=== PATIENT | female | born 1995 | race Caucasian/White ===

== ENCOUNTER 2017-10-12 10:26 | Emergency (ER) | payer OTHER ==
[2017-10-12 12:57] LABS: Absolute Monocytes 0.8 K/uL (0.1-1.3); Absolute Neutrophil 8.8 K/uL (1.8-8.0); Basophils % 0.5 % (0-1.3); Eosinophils % 1.1 % (0-4.4); Hematocrit 41.2 % (36.0-45.0); Lymphocytes % 16.8 % (15.3-44.8); MCH 29.6 pg (27.0-35.0); MCV 88.2 fL (80-100); MPV 9.4 fL (7.6-11.3); Monocytes % 6.6 % (3.3-12.3); RBC Red Blood Cell Count 4.67 M/uL (3.86-4.86)
[2017-10-12 12:59] LABS: Urine Blood 3+ (NEG); Urine Glucose NEGATIVE (NEG); Urine Protein 2+ (NEG); Urine pH 8.5 (5.0-7.0)
[2017-10-12 13:04] LABS: Protime INR 1.07
[2017-10-12 13:08] LABS: Bicarbonate 26 mEq/L (21-31); Glucose Level 103 mg/dL (65-120); Potassium 3.5 mEq/L (3.6-5.0); Sodium Level 139 mEq/L (135-145)
[2017-10-12 13:09] LABS: BUN Blood Urea Nitrogen 11 mg/dL (6-20); Magnesium 1.9 mg/dL (1.8-2.5)
[2017-10-12] MEDS ORDERED: MECLIZINE HCL 12.5 MG TAB ONE (14:39)
[2017-10-12] MEDS ORDERED: POTASSIUM 25 MEQ EFFERV TAB ONE (14:40)
--- NOTE | 2017-10-12 15:26 | EKG ---
Test Date: 2017-10-12 Test Time: 12:27:32 [employer] Agent: ANTWAN MEASUREMENT RESULTS: Intervals: Rate: 73 SD: 140 QRSD: 88 QT: 396 QTc: 436 [place]: P: 51 SD: 140 QRS: 6 T: 12 INTERPRETIVE STATEMENTS: Normal sinus rhythm with sinus arrhythmia Possible Left atrial enlargement Borderline ECG No previous ECG available for comparison Electronically Signed On 10-12-17 15:25:33 CDT by Christoph Mckeon
--- NOTE | 2017-10-12 16:28 | RAD REPORT ---
EXAM DESCRIPTION: MRI - Brain Wo Cont - 10/12/2017 4:07 pm CLINICAL HISTORY: Dizziness, weakness, intermittent altered mental status COMPARISON: None. TECHNIQUE: Sagittal T1-weighted images were obtained along with axial PD, heavily T2-weighted and T2 -FLAIR images. Axial DWI and ADC mapping sequences were also obtained along with coronal heavily T2-w eighted images. FINDINGS: No intracranial hemorrhage, mass or acute infarction. There is no edema or shift of midlin e structures. No extra-axial fluid collections. Cotton-matter/white matter junction is preserved. Signa l voids are seen as a normal finding in the major intracranial vessels. No globe or orbital content abnormality. Sella and suprasellar regions are normal. No tonsillar ectop ia. There is no cerebellopontine angle mass or other posterior fossa abnormality. Mastoid air cells and paranasal sinuses are clear. IMPRESSION: Negative non-contrast MRI of the Brain.
--- NOTE | 2017-10-12 16:34 | ER ---
Nurse's Notes [facility] Name: Donna Farris Age: 22 yrs Sex: Female : 1995 Arrival Date: 10/12/2017 Time: 10:28 Bed 14 Private MD: Diagnosis: Dizziness Presentation: 10/12 10:51 Presenting complaint: Patient states: " I have been feeling weird and dizzy like my ph equilibrium is off. It's like I can't concentrate. It's been happening off and on for about a year, I've seen an ENT but they said everything was okay. It started again today and I just want to get it checked out." Pt reports intermittent dizziness and nausea, denies weakness. Transition of care: patient was not received from another setting of care. Onset of symptoms was October 12, 2017. Initial Sepsis Screen: Does the patient meet any 2 criteria? No. Patient's initial sepsis screen is negative. Does the patient have a suspected source of infection? No. Patient's initial sepsis screen is negative. Care prior to arrival: None. 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 - Social history:: Smoking status: Patient/guardian denies using tobacco. Screenin:00 Abuse screen: Denies threats or abuse. Nutritional screening: No deficits noted. rb1 Tuberculosis screening: No symptoms or risk factors identified. Fall Risk None identified. Assessment: 11:00 General: Appears in no apparent distress. comfortable, Behavior is calm, cooperative. rb1 Pain: Denies pain. Neuro: Level of Consciousness is awake, alert, obeys commands, Oriented to person, place, time, situation. Neuro: Reports dizziness, Has been happening off and on for several weeks. Pt. stated, "My head feels full and I have pressure in both ears.". Cardiovascular: Capillary refill < 3 seconds is brisk in bilateral fingers. Respiratory: Airway is patent Respiratory effort is even, unlabored, Respiratory pattern is regular, symmetrical. GI: No signs and/or symptoms were reported involving the gastrointestinal system. : No signs and/or symptoms were reported regarding the genitourinary system. Derm: Skin is pink, warm \\T\\ dry. Musculoskeletal: Range of motion: intact in all extremities. 12:00 Reassessment: Patient appears in no apparent distress at this time. No changes from rb1 previously documented assessment. 12:59 Reassessment: Patient appears in no apparent distress at this time. Patient and/or rb1 family updated on plan of care and expected duration. Pain level reassessed. Patient is alert, oriented x 3, equal unlabored respirations, skin warm/dry/pink. Spouse at bedside. 14:00 Reassessment: Patient appears in no apparent distress at this time. No changes from rb1 previously documented assessment. 15:00 Reassessment: Patient appears in no apparent distress at this time. Patient and/or rb1 family updated on plan of care and expected duration. Pain level reassessed. Patient is alert, oriented x 3, equal unlabored respirations, skin warm/dry/pink. pt. still c/o being dizzy and having pressure in her ears. at bedside. 16:00 Reassessment: Patient appears in no apparent distress at this time. No changes from rb1 previously documented assessment. Patient states feeling better. 16:38 Reassessment: Patient appears in no apparent distress at this time. Patient and/or rb1 family updated on plan of care and expected duration. Pain level reassessed. Patient is alert, oriented x 3, equal unlabored respirations, skin warm/dry/pink. Patient states symptoms have improved. Vital Signs: 10:54 BP 130 / 75; Pulse 80; Resp 18; Temp 97.9; Pulse Ox 97% on R/A; Weight 95.71 kg; Height ph 5 ft. 5 in. (165.10 cm); Pain 0/10; 11:35 BP 116 / 74 Supine; Pulse 82; Resp 17; Pulse Ox 98% on R/A; rb1 11:37 BP 121 / 67 Sitting; Pulse 73; Resp 17; Pulse Ox 100% on R/A; rb1 11:39 BP 115 / 76 Standing; Pulse 70; Resp 18; Pulse Ox 100% ; rb1 12:30 BP 128 / 69; Pulse 74; Resp 17; Pulse Ox 98% on R/A; rb1 13:27 BP 130 / 72; Pulse 80; Resp 18; Pulse Ox 98% on R/A; rb1 14:25 BP 122 / 78; Pulse 68; Resp 17; Pulse Ox 99% on R/A; rb1 15:20 BP 129 / 81; Pulse 76; Resp 19; Pulse Ox 100% on R/A; rb1 16:20 BP 124 / 78; Pulse 82; Resp 17; Pulse Ox 100% on R/A; rb1 10:54 Body Mass Index 35.11 (95.71 kg, 165.10 cm) ph ED Course: 10:28 Patient arrived in ED. sb2 10:54 Triage completed. ph 10:55 Arm band placed on. ph 10:59 Efe Adame PA is PHCP. cp 10:59 Efe Maharaj MD is Attending Physician. cp 11:00 Patient has correct armband on for positive identification. Bed in low position. Call rb1 light in reach. Side rails up X 1. manager money on. Pulse ox on. NIBP on. 11:02 Alecia Marie, RN is Primary Nurse. rb1 12:25 Urine collected: clean catch specimen, blood tinged. Missed attempt(s): 24 gauge in dh3 right wrist. Bleeding controlled, band aid applied, catheter tip intact. 12:45 Initial lab(s) drawn, by me, sent to lab. Inserted saline lock: 20 gauge in right aa5 antecubital area, using aseptic technique. Blood collected. 15:07 Patient moved to [facility] via wheelchair. ka 15:27 MRI completed. Patient tolerated well. Patient moved back from [facility]. ka 15:28 MRI - Brain Wo Cont In Process Unspecified. EDMS 16:32 Reji Juarez MD is Referral Physician. cp 16:50 No provider procedures requiring assistance completed. IV discontinued, intact, rb1 bleeding controlled, No redness/swelling at site. Pressure dressing applied. Administered Medications: 14:53 Drug: Meclizine 25 mg Route: PO; rb1 15:12 Follow up: Response: No adverse reaction rb1 14:53 Drug: Potassium Effervescent Tablet 25 mEq Route: PO; rb1 15:12 Follow up: Response: No adverse reaction rb1 15:10 Drug: NS 0.9% 1000 ml Route: IV; Rate: 1 bolus; Site: right antecubital; rb1 16:22 Follow up: IV Status: Completed infusion rb1 Outcome: 16:33 Discharge ordered by . cp 16:50 Patient left the ED. rb1 16:50 Discharged to home ambulatory, with significant other. rb1 16:50 Condition: stable 16:50 Discharge instructions given to patient, Instructed on discharge instructions, follow up and referral plans. medication usage, Demonstrated understanding of instructions, follow-up care, medications, Prescriptions given X 2. Signatures: Dispatcher [employer] EDAbby Smith RN RN aa5 Mariajose Rogers RN RN ph Wendi, Efe, PA PA Alecia Avila RN RN rb1 Laura Sanon Deanna 3 Sammie Cabrera 2
--- NOTE | 2017-10-12 16:34 | EDPHYS ---
Physician Documentation [facility] Name: Donna Farris Age: 22 yrs Sex: Female : 1995 Arrival Date: 10/12/2017 Time: 10:28 Bed 14 Private MD: ED Physician Efe Maharaj HPI: 10/12 11:30 This 22 yrs old Female presents to ER via Ambulatory with complaints of cp Dizziness. 11:30 The patient presents with dizziness, feeling off balance. Onset: The symptoms/episode cp began/occurred 1 year(s) ago. 11:30 Associated signs and symptoms: Pertinent negatives: abdominal pain, blurred vision, cp chest pain, focal weakness, headache, near-syncope, palpitations, shortness of breath, syncope, vomiting. Severity of symptoms: in the emergency department the symptoms are unchanged despite home interventions. Patient's baseline: Neuro: alert and fully oriented, Motor: no deficits, Ambulation: walks without assistance, Speech: normal. 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 - Social history:: Smoking status: Patient/guardian denies using tobacco. ROS: 11:37 Constitutional: Negative for body aches, chills, fever, poor PO intake. cp 11:37 Eyes: Negative for injury, pain, redness, and discharge. cp 11:37 ENT: Negative for drainage from ear(s), ear pain, rhinorrhea, sinus congestion, difficulty swallowing, difficulty handling secretions. 11:37 Neck: Negative for pain with movement, pain at rest, stiffness, tenderness, bony tenderness. 11:37 Cardiovascular: Negative for chest pain, edema, palpitations. 11:37 Respiratory: Negative for cough, shortness of breath, wheezing. 11:37 Abdomen/GI: Negative for abdominal pain, vomiting, diarrhea, constipation, black/tarry stool, rectal bleeding. 11:37 Back: Negative for pain at rest, pain with movement, radiated pain. 11:37 Skin: Negative for cellulitis, rash. 11:37 Neuro: Positive for dizziness, Negative for altered mental status, headache, seizure activity, syncope, near syncope, weakness. 11:37 All other systems are negative. Exam: 11:42 Constitutional: The patient appears in no acute distress, alert, awake, cp non-diaphoretic, well developed, well nourished. 11:42 Head/Face: Normocephalic, atraumatic. Eyes: Pupils equal round and reactive to light, cp extra-ocular motions intact. Lids and lashes normal. Conjunctiva and sclera are non-icteric and not injected. Cornea within normal limits. Periorbital areas with no swelling, redness, or edema. ENT: Nares patent. No nasal discharge, no septal abnormalities noted. Tympanic membranes are normal and external auditory canals are clear. Oropharynx with no redness, swelling, or masses, exudates, or evidence of obstruction, uvula midline. Mucous membranes moist. Neck: Trachea midline, no thyromegaly or masses palpated, and no cervical lymphadenopathy. Supple, full range of motion without nuchal rigidity, or vertebral point tenderness. No Meningismus. Chest/axilla: Normal chest wall appearance and motion. Nontender with no deformity. No lesions are appreciated. 11:42 Cardiovascular: Rate: normal, Rhythm: regular, Pulses: Pulses are 2+ in right radial artery and left radial artery. Edema: is not appreciated, JVD: is not appreciated. 11:42 Respiratory: the patient does not display signs of respiratory distress, Respirations: normal, no use of accessory muscles, no retractions, no splinting, no tachypnea, labored breathing, is not present, Breath sounds: are clear throughout, no decreased breath sounds, no stridor, no wheezing. 11:42 Abdomen/GI: Inspection: abdomen appears normal, Bowel sounds: active, all quadrants, Palpation: abdomen is soft and non-tender, in all quadrants, rebound tenderness, is not appreciated, voluntary guarding, is not appreciated, involuntary guarding, is not appreciated. 11:42 Back: pain, is absent, ROM is normal. 11:42 Skin: cellulitis, is not appreciated, no rash present. 11:42 Neuro: Orientation: to person, place \T\ time. Mentation: lucid, able to follow commands, Cerebellar function: is grossly normal, Motor: moves all fours, strength is normal, Sensation: no obvious gross deficits, Gait: is steady. 12:35 ECG was reviewed by the Attending Physician. cp Vital Signs: 10:54 BP 130 / 75; Pulse 80; Resp 18; Temp 97.9; Pulse Ox 97% on R/A; Weight 95.71 kg; Height ph 5 ft. 5 in. (165.10 cm); Pain 0/10; 11:35 BP 116 / 74 Supine; Pulse 82; Resp 17; Pulse Ox 98% on R/A; rb1 11:37 BP 121 / 67 Sitting; Pulse 73; Resp 17; Pulse Ox 100% on R/A; rb1 11:39 BP 115 / 76 Standing; Pulse 70; Resp 18; Pulse Ox 100% ; rb1 12:30 BP 128 / 69; Pulse 74; Resp 17; Pulse Ox 98% on R/A; rb1 13:27 BP 130 / 72; Pulse 80; Resp 18; Pulse Ox 98% on R/A; rb1 14:25 BP 122 / 78; Pulse 68; Resp 17; Pulse Ox 99% on R/A; rb1 15:20 BP 129 / 81; Pulse 76; Resp 19; Pulse Ox 100% on R/A; rb1 16:20 BP 124 / 78; Pulse 82; Resp 17; Pulse Ox 100% on R/A; rb1 10:54 Body Mass Index 35.11 (95.71 kg, 165.10 cm) ph MDM: 10:59 Patient medically screened. cp 12:00 Differential diagnosis: cardiac arrhythmia, GI bleed, hypovolemia, idiopathic cp dizziness, vertigo. 16:32 Data reviewed: vital signs, nurses notes, lab test result(s), EKG, radiologic studies, cp MRI. 16:32 Counseling: I had a detailed discussion with the patient and/or guardian regarding: the cp historical points, exam findings, and any diagnostic results supporting the discharge/admit diagnosis, lab results, radiology results, the need for outpatient follow up, a neurologist, to return to the emergency department if symptoms worsen or persist or if there are any questions or concerns that arise at home. Response to treatment: the patient's symptoms have mildly improved after treatment, and as a result, I will discharge patient. 10/12 11:32 Order name: Basic Metabolic Panel; Complete Time: 14:11 cp 10/12 14:11 Interpretation: Normal except: K 3.5. cp 10/12 11:32 Order name: CBC with Diff; Complete Time: 14:11 cp 05 14:12 Interpretation: Normal except: WBC 11.7; MCV 88.2; MCH 29.6; LAUREN% 75.0; NEUT A 8.8. cp 10/12 11:32 Order name: Magnesium; Complete Time: 14:11 cp 10/12 11:32 Order name: PT-INR; Complete Time: 14:11 cp 10/12 14:12 Interpretation: PT 12.6; Reviewed. 10/12 11:32 Order name: Ptt, Activated; Complete Time: 14:11 cp 10/12 12:25 Order name: Urine Dipstick--Ancillary (enter results); Complete Time: 14:11 10/12 14:12 Interpretation: Normal except: UBLD 3+; UPH 8.5; UPROT 2+. 10/12 11:20 Order name: Orthostatics; Complete Time: 11:40 10/12 11:20 Order name: EKG; Complete Time: 11:21 10/12 11:20 Order name: EKG - Nurse/Tech; Complete Time: 12:26 cp 10/12 12:25 Order name: Urine --Ancillary (enter results); Complete Time: 14:11 10/12 16:32 Interpretation: Reviewed. 10/12 14:54 Order name: MRI - Brain Wo Cont; Complete Time: 16:31 cp 10/12 11:32 Order name: Urine Dipstick-Ancillary (obtain specimen); Complete Time: 12:26 cp 10/12 11:32 Order name: Urine Test (obtain specimen); Complete Time: 12:26 cp 10/12 11:32 Order name: Cardiac monitoring; Complete Time: 14:54 cp 10/12 11:32 Order name: IV Saline Lock; Complete Time: 14:53 cp 10/12 11:32 Order name: Labs collected and sent; Complete Time: 14:53 10/12 11:32 Order name: O2 Per Protocol; Complete Time: 14:53 cp 10/12 11:32 Order name: O2 Sat Monitoring; Complete Time: 14:53 cp EC:35 Rate is 73 beats/min. Rhythm is regular. PA interval is normal. QRS interval is normal. cp QT interval is normal. No ST changes noted. Interpreted by me. Reviewed by me. Administered Medications: 14:53 Drug: Meclizine 25 mg Route: PO; rb1 15:12 Follow up: Response: No adverse reaction rb1 14:53 Drug: Potassium Effervescent Tablet 25 mEq Route: PO; rb1 15:12 Follow up: Response: No adverse reaction rb1 15:10 Drug: NS 0.9% 1000 ml Route: IV; Rate: 1 bolus; Site: right antecubital; rb1 16:22 Follow up: IV Status: Completed infusion rb1 Disposition: 10/13 11:44 Co-signature as Attending Physician, fEe Maharaj MD I agree with the assessment and calista plan of care. Disposition: 10/12/17 16:33 Discharged to Home. Impression: Dizziness. - Condition is Stable. - Discharge Instructions: Dizziness, Vertigo. - Prescriptions for Meclizine 25 mg Oral Tablet - take 1 tablet by ORAL route every 8 hours As needed; 30 tablet. Zofran 4 mg Oral Tablet - take 1 tablet by ORAL route every 12 hours As needed; 20 tablet. - Medication Reconciliation Form, Thank You Letter, Antibiotic Education, Prescription Opioid Use form. - Follow up: Reji Juarez MD; When: 1 - 2 days; Reason: Recheck today's complaints. - Problem is new. - Symptoms are unchanged. Signatures: Dispatcher [employer] EDNV Efe Maharaj MD MD cha Hall, Patricia, RN RN Efe Gonsalves PA PA cp Barber, Rebecca, MOLLY RN rb1 Corrections: (The following items were deleted from the chart) 10/12 16:50 16:33 10/12/2017 16:33 Discharged to Home. Impression: Dizziness. Condition is Stable. rb1 Forms are Medication Reconciliation Form, Thank You Letter, Antibiotic Education, Prescription Opioid Use. Follow up: Reji Juarez; When: 1 - 2 days; Reason: Recheck today's complaints. Problem is new. Symptoms are unchanged. cp
[2017-10-12] MEDS ORDERED: NA CHLORIDE 0.9% 1,000 ML ONE (16:38)
[2017-10-12 16:54] VITALS: TEMP 97.9
[2017-10-12 16:56] VITALS: O2SAT 100
[2017-10-12 16:58] VITALS: BP 115/76
== END 2017-10-12 16:50 | disposition home or self-care (01) ==
LOC: ER 10:26
DX: R42 Dizziness and giddiness (principal); K21.9 Gastro-esophageal reflux disease without esophagitis; Z88.1 Allergy status to other antibiotic agents; Z98.82 Breast implant status
CPT/HCPCS: 36415; 70551; 80048; 81003; 81025; 83735; 85025; 85610; 85730; 93005; 96360; 99285; J7030

== ENCOUNTER 2018-12-29 05:23 | Inpatient (IN) | payer OTHER ==
[2018-12-29] MEDS ORDERED: CEFAZOLIN/SWI 2gm 2 GM/20 ML SYR ONE (05:56)
[2018-12-29] MEDS ORDERED: FENTANYL CITR 250 MCG/5 ML ONE (05:58)
[2018-12-29] MEDS ORDERED: PROPOFOL 200 MG/20 ML VIAL IV ONE (05:58)
[2018-12-29] MEDS ORDERED: MIDAZOLAM HCL 2 MG/2 ML INJ ONE (05:58)
[2018-12-29 06:12] LABS: Absolute Lymphocytes (CBC) 1.8 K/uL (0.7-4.9); Basophils % 0.2 % (0-1.3); Hematocrit 36.5 % (36.0-45.0); Lymphocytes % 12.2 % (15.3-44.8); MPV 11.4 fL (7.6-11.3); RBC Red Blood Cell Count 4.04 M/uL (3.86-4.86)
[2018-12-29 06:21] LABS: Barbiturates NEGATIVE (NEGATIVE); Benzodiazepines NEGATIVE (NEGATIVE); Cocaine NEGATIVE (NEGATIVE); METHAMPHETAM NEGATIVE (NEGATIVE); Methadone NEGATIVE (NEGATIVE); Opiates NEGATIVE (NEGATIVE); Phencyclidine NEGATIVE (NEGATIVE); THC Cannibis NEGATIVE (NEGATIVE)
[2018-12-29] MEDS ORDERED: ROCURONIUM 50 MG/5 ML VIAL IV ONE (06:21)
[2018-12-29] MEDS ORDERED: OXYTOCIN 10 UNIT/ML ML IV ONE ×2 (06:29→06:37)
[2018-12-29] MEDS ORDERED: Ringers Lactate 1,000 ML IV ONE ×3 (06:34→18:09)
[2018-12-29] MEDS ORDERED: METHYLERGONOVINE 0.2 MG TAB PO PRN (06:48)
[2018-12-29] MEDS ORDERED: Oxycodone HCl/Acetaminophen 1 TAB TAB PO PRN ×2 (06:48)
[2018-12-29] MEDS ORDERED: ONDANSETRON 4 MG (ODT) TAB PO PRN (06:48)
[2018-12-29] MEDS ORDERED: ONDANSETRON 4 MG/2 ML VIAL ONE (06:48)
[2018-12-29] MEDS ORDERED: GLYCOPYRROLATE 0.2 MG/ML SYR ONE (06:59)
[2018-12-29] MEDS ORDERED: NEOSTIGMINE 1 MG/ML -10 ML VIAL ONE (07:00)
[2018-12-29] MEDS ORDERED: OXYTOCIN/LR 20 UNIT/1,000 ML BAG IV ONE (07:25)
[2018-12-29] MEDS ORDERED: MORPHINE 4 MG/ML SYR IV PRN ×2 (13:20→16:01)
[2018-12-29] MEDS: KETOROLAC 30 MG/ML INJ IV PRN ×2 (16:00→23:04)
[2018-12-29 17:40] LABS: RPR (Rapid Plasma Reagin) NON-REACT (NON-REACT)
[2018-12-29] MEDS: MORPHINE 4 MG/ML SYR IV PRN (20:35)
[2018-12-29] MEDS ORDERED: Ringers Lactate 2,000 ML IV ONE (21:07)
--- NOTE | 2018-12-29 22:29 | P.OBGYNHP ---
Certification for Inpatient Patient admitted to: Inpatient With expected LOS: >2 Midnights Patient will require the following post-hospital care: None Practitioner: I am a practitioner with admitting privileges, knowledge of patient current condition, hospital course, and medical plan of care. Services: Services provided to patient in accordance with Admission requirements found in Title 42 Section 412.3 of the Code of Federal Regulations Patient History Date of Service: 12/31/18 Reason for admission: Cord Prolapse History of Present Illness: Patient is a 23 y/o at 41 weeks and 4 days gestation who presented to labor with spontaneous rupture of membranes and cord prolapse while attempting to at home under the care of her deputy coroner investigator. Patient states she had rupture of membranes around 2am. She then presented to labor at delivery at 5am. She states her deputy coroner investigator was not present at her home when her water broke. She states she went to the bathroom at that time and felt something come out of her vagina. When she felt it she pushed it back into her vagina. Upon my arrival to the hospital, the patient was on the bed on her hands and knees. I examined her and felt the umbilical cord in the vagina, I could not confirm a vertex presentation. Patient states she had an ultrasound done last week and was notified the baby was in vertex presentation at that time. Allergies cephalexin [From Keflex] Allergy (Unverified 10/12/17 16:54) Unknown Penicillins Allergy (Verified 12/21/11 18:04) Hives Home Medications: Codeine/APAP [Tylenol W/Codeine #3 tab] 1 tab PO Q6HP PRN #24 tab 12/31/18 Vitamin [ VITAMIN*] 1 PO DAILY 12/31/18 - Past Medical/Surgical History Diabetic: No Past Medical History: Reviewed- Non-Contributory -: Prior section x1 - Family History Family History: Reviewed- Non-Contributory - Social History Smoking Status: Never smoker Alcohol use: No CD- Drugs: No Caffeine use: No Review of Systems 10-point ROS is otherwise unremarkable Physical Examination - Vital Signs Temperature: 98.0 F Blood Pressure: 115/61 Pulse: 61 Respirations: 18 - General General: Alert, Oriented x3, Moderate distress HEENT: Atraumatic Neck: Supple Respiratory: Normal air movement Cardiovascular: No edema, Normal pulses Breasts: Normal configuration Gastrointestinal: Other (Gravid abdomen) Musculoskeletal: No clubbing, No swelling - Female Pelvic External genitalia: Normal Vagina: Normal, Bowman, Moist, Other (umbilical cord pulsating and prolapsed in the vagina) Cervix: Dilation (2 cm), Effacement (50), station (-3; unable to confirm vertex presentation) Uterus: Gravid Adnexa: Unable to evaluate - Obstetrics Amniotic membrane: SROM Laboratory Data (last 24 hrs) 12/29/18 05:30: Glucose 96 12/29/18 05:30: WBC 14.6 H, Hgb 12.4, Hct 36.5, Plt Count 127 L Assessment and Plan - Plan Patient is a 23 y/o at 41 weeks and 4 days gestation who presented to labor with spontaneous rupture of membranes and cord prolapse while attempting to at home under the care of her deputy coroner investigator. Unable to confirm vertex presentation. Patient immediately admitted for repeat section. General anesthesia will be administered. Ancef 2 grams will be given prior to incision. Routine postop care. Discharge Plan: Home Plan to discharge in: 72 Hours - Advance Directives Does patient have a Living Will: No Does patient have a Durable POA for Healthcare: No
--- NOTE | 2018-12-29 22:33 | P.OP ---
Sleeve Baster: John Landers Preoperative diagnosis: Postdates , cord prolapse, prior Postoperative diagnosis: As above and transverse presentation Primary procedure: Repeat low transverse section Secondary procedure: none Anesthesia: General; Dr. Cueva Estimated blood loss: 800cc Specimen: Cord blood; placenta Findings: male ; postterm, transverse presentation Operative Technique: FINDINGS: The uterus was normal. Both fallopian tubes and ovaries were found to be normal. The was in transverse presentation with head in maternal right presentation. Infant weight was 9 lbs. 13 oz. Apgars were 6 at 1 min. and 8 at 5 min. Meconium amniotic fluid. Grade III appearing placenta with multiple calcifications. PROCEDURE: The patient was taken to the operating room within IV running with antibiotics infusing where she was placed in a dorsal supine position with a slight leftward tilt. She was prepped and draped in the normal sterile fashion. A Earl catheter was already in the bladder and connected to dependent drainage. PAS stockings were in place and activated. A timeout was done per our usual protocol. A Pfannenstiel incision was made and carried through the subcutaneous tissue with the scalpel. The fascia was nicked in the midline and the fascial incision was extended laterally with Lucero scissors. The inferior aspect of the fascial incision was tented up and bluntly and sharply dissected off the rectus muscles below. In a similar fashion, the superior aspect of the fascial incision was tented up and bluntly and sharply dissected off the rectus muscles below. The rectus muscles were in the midline, the peritoneum was identified and entered bluntly. The peritoneal incision was extended superiorly and inferiorly with good visualization of intraperitoneal organs and the bladder. The anterior , lower uterine segment did not appear developed and the fetus did not palpate to be in vertex presentation. The bladder blade was placed and a bladder flap was developed. A transverse curvilinear incision was made in the lower uterine segment. The incision was extended laterally with blunt digital dissection. A hand was placed in the uterus and the head was palpated on the maternal right. The right arm came out of the incision and was replaced. The head was not moving toward the incision likely due to the large size of the baby therefore decision was made to bring the feet through the incision first. A hand was placed into the incision and the feet were grasped and legs were first delivered. A wet towel was used to grasp the fetus for traction and the arms were swept across the chest gently, one at a time and the fetus was rotated. Next, the torso and arms were delivered and index finger was placed in the 's mouth and the head was flexed. Fundal pressure was applied and the head delivered atraumatically. The umbilical cord was clamped and cut and the was handed off to the pediatrian. Cord blood was obtained. The uterus was massaged and the placenta was expressed. The uterus was exteriorized and cleared of all clots and debris. The bladder blade was replaced, and the uterine incision was repaired with a 1.0 vicryl in a running un-locking fashion and closed in 2 layers. The incision was inspected and found to be hemostatic. The pelvic peritoneum was not irrigated, but was cleared of all clots and debris. The uterus was replaced into the peritoneal cavity. The medial edges of the rectus muscles were plicated in the midline using 0 vicryl suture. The rectus muscles were inspected and found to be hemostatic. The fascia was then closed with 0-Vicryl suture in a running fashion. The subcutaneous tissues were copiously lavaged with warm normal saline. Hemostasis was noted. Subcutaneous tissue was reapproximated with 2.0 plain gut in interrupted sutures. The skin was closed with a subcuticular stitch of 3-0 vircyl on a Pal needle. The incision was cleansed and dried and an occlusive dressing was applied. Sponge, needle, instrument counts were correct x 2. Patient was taken back to her room in stable condition. Drain(s): Urinary catheter Transferred to: Recovery Room Condition: Good
[2018-12-30] MEDS ORDERED: Ringers Lactate 1,000 ML IV ONE ×2 (00:23→13:29)
[2018-12-30] MEDS: MORPHINE 4 MG/ML SYR IV PRN ×2 (00:27→07:16)
[2018-12-30 06:54] LABS: Absolute Lymphocytes (CBC) 1.6 K/uL (0.7-4.9); Basophils % 0.6 % (0-1.3); Hematocrit 31.1 % (36.0-45.0); Lymphocytes % 11.8 % (15.3-44.8); MPV 11.1 fL (7.6-11.3); RBC Red Blood Cell Count 3.42 M/uL (3.86-4.86)
[2018-12-30] MEDS: KETOROLAC 30 MG/ML INJ IV PRN (08:23)
[2018-12-30] MEDS: ACETAMINOPHEN 500 MG TAB PO PRN ×3 (09:14→20:00)
[2018-12-30] MEDS ORDERED: CODEINE 30MG/APAP 300MG TAB PO PRN (09:43)
[2018-12-30] MEDS: IBUPROFEN 200 MG TAB PO PRN ×2 (10:56→19:02)
[2018-12-30] MEDS: DOCUSATE NA 100 MG CAP PO SCH ×2 (12:10→21:00)
[2018-12-30] MEDS ORDERED: DIPHENHYDRAMINE 25 MG TAB/CAP PO ONE (16:47)
[2018-12-30 17:13] LABS: Absolute Lymphocytes (CBC) 1.6 K/uL (0.7-4.9); Basophils % 0.5 % (0-1.3); Hematocrit 32.9 % (36.0-45.0); Lymphocytes % 11.1 % (15.3-44.8); MPV 10.5 fL (7.6-11.3); RBC Red Blood Cell Count 3.65 M/uL (3.86-4.86)
[2018-12-30 20:06] LABS: Urine White Blood Cell Casts OK
[2018-12-30 20:08] LABS: Blood Morphology Comment NOT SEEN (NOT SEEN); Platelet Estimate DECR
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
[2018-12-31] MEDS: IBUPROFEN 200 MG TAB PO PRN ×2 (01:00→07:00)
[2018-12-31] MEDS: ACETAMINOPHEN 500 MG TAB PO PRN (02:30)
[2018-12-31] MEDS ORDERED: MAGNESIUM HYDROXIDE 8% 30 ML PO PRN (08:53)
[2018-12-31 09:16] VITALS: TEMP 98; BMI 37.4
[2018-12-31] MEDS ORDERED: MAGNESIUM HYDROXIDE 8% 30 ML ONE (09:19)
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
[2018-12-31 13:47] VITALS: BP 115/61
[2019-01-01 12:42] LABS: HBsAG Nonreactive (Nonreactive)
== END 2018-12-31 13:15 | disposition home or self-care (01) | DRG 788 ==
LOC: 2ND-WC 05:23
PROVIDERS: ADMIT Student in an Organized Health Care Education/Training Program; ATTEND Student in an Organized Health Care Education/Training Program
PROC: 10D00Z1 Extraction of Products of Conception, Low, Open Approach (ICD-10-PCS; principal; 2018-12-29 06:00)
DX: O69.0XX0 Labor and delivery complicated by prolapse of cord, not applicable or unspecified (principal); Z3A.41 41 weeks gestation of pregnancy; Z37.0 Single live birth; O32.2XX0 Maternal care for transverse and oblique lie, not applicable or unspecified; O34.211 Maternal care for low transverse scar from previous cesarean delivery; O77.0 Labor and delivery complicated by meconium in amniotic fluid; O48.0 Post-term pregnancy; Z88.1 Allergy status to other antibiotic agents; Z88.0 Allergy status to penicillin
CPT/HCPCS: 36415; 80307; 82947; 85025; 86592; 86762; 86901; 87340; 88305; 88307; G0433; J0690; J2250; J2405; J2590; J2704; J2710; J3010

== ENCOUNTER 2022-10-31 18:43 | Emergency (ER) | payer SELFPAY ==
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
[2022-10-31 21:47] LABS: Specific Gravity 1.014 (1.005-1.030)
[2022-10-31 21:57] LABS: Specific Gravity 1.014 (1.005-1.030); Urine Bacteria <20 /HPF (<20); Urine Bilirubin NEGATIVE (Negative); Urine Blood Negative (Negative); Urine Clarity Extremely Turbid (Clear); Urine Color Light-Orange (Yellow); Urine Glucose NEGATIVE (Negative); Urine Mucus Slight /HPF (None Seen); Urine Protein NEGATIVE (Negative); Urine RBC <5 /HPF (None Seen); Urine Urobilinogen Normal (Normal); Urine pH 7.5 (5.0-7.0)
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
[2022-11-01 01:45] VITALS: BP 132/80; TEMP 98.2; O2SAT 100
== END 2022-11-01 00:16 | disposition home or self-care (01) ==
LOC: ER 18:43
DX: O9A.211 Injury, poisoning and certain other consequences of external causes complicating pregnancy, first trimester (principal); S02.2XXA Fracture of nasal bones, initial encounter for closed fracture; S02.401A Maxillary fracture, unspecified side, initial encounter for closed fracture; S02.402A Zygomatic fracture, unspecified side, initial encounter for closed fracture; S02.400A Malar fracture, unspecified side, initial encounter for closed fracture; Y04.8XXA Assault by other bodily force, initial encounter; Z3A.10 10 weeks gestation of pregnancy; Z98.82 Breast implant status; Z88.1 Allergy status to other antibiotic agents; Z91.048 Other nonmedicinal substance allergy status
CPT/HCPCS: 70160; 70490; 76815; 81001; 81025; 99282

== ENCOUNTER 2024-06-01 12:55 | Emergency (ER) | payer BC, OTHER ==
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
--- NOTE | 2024-06-01 14:25 | RAD REPORT ---
EXAMINATION: TWO VIEW CHEST XR CLINICAL INDICATION: Congestion;Cough TECHNIQUE: 2 views of the chest was performed. COMPARISON: No prior exam. FINDINGS: The lungs are well inflated and clear. The heart is normal in size. No displaced fractures evident. IMPRESSION: No acute or significant abnormalities.
--- NOTE | 2024-06-01 14:28 | EDPHYS ---
Physician Documentation [facility] Name: Donna Farris Age: 29 yrs Sex: Female : 1995 Arrival Date: 06/01/2024 Time: 12:55 Bed DX5 Private MD: ED Physician Fareed Mcknight HPI: 06/01 13:24 This 29 yrs old Female presents to ER via Ambulatory with complaints of Flu Symptoms. sb4 13:24 Been sick for flulike symptoms for about 1 week. States that her daughter tested sb4 positive for flu. She states that she had been feeling better the past couple of days but this morning she started feeling worse again with low-grade fever, fatigue, painful cough. Historical: - Allergies: 13:12 Keflex; iw 13:12 SILICON; iw - PMHx: 13:12 GERD; iw - PSHx: 13:12 breast augmentation; section; deviated septum repair; iw - Immunization history:: Adult Immunizations not up to date. - Infectious Disease History:: Denies. - Social history:: Smoking status: Patient/guardian denies using tobacco, Stopped _ months ago 3. ROS: 13:24 Cardiovascular: Negative for chest pain, palpitations, and edema, sb4 13:24 Constitutional: Positive for fatigue, fever, malaise, 13:24 ENT: Positive for sore throat, 13:24 Respiratory: Positive for cough, with green sputum, 13:24 All other systems are negative, Exam: 13:26 Constitutional: This is a well developed, well nourished patient who is awake, alert, sb4 and in no acute distress. Head/Face: Normocephalic, atraumatic. Eyes: Extra-ocular motions intact. Periorbital areas with no swelling, redness, or edema. ENT: Mucous membranes moist. Cardiovascular: Regular rate and rhythm with a normal S1 and S2. Respiratory: No increased work of breathing, no retractions or nasal flaring. Skin: Warm, dry with normal turgor. Normal color with no rashes, no lesions, and no evidence of cellulitis. Vital Signs: 13:11 BP 118 / 72; Pulse 89; Resp 19; Temp 97.9; Pulse Ox 99% ; Weight 90.72 kg; Height 5 ft. iw 5 in. ; 13:11 Body Mass Index 33.28 (90.72 kg, 165.1 cm) MDM: 13:20 Medical Screening Exam initiated sb4 14:26 Data reviewed: vital signs, nurses notes, radiologic studies, and as a result, I will sb4 discharge patient. Counseling: I had a detailed discussion with the patient and/or guardian regarding the historical points, exam findings, and any diagnostic results supporting the discharge/admit diagnosis, radiology results, to return to the emergency department if symptoms worsen or persist or if there are any questions or concerns that arise at home. 15:06 Differential diagnosis: viral Infection, bacterial infection, URI, bronchitis, sb4 pneumonia. 06/01 13:20 Order name: Chest Pa And Lat (2 Views) XRAY; Complete Time: 14:26 sb4 Administered Medications: No medications were administered Disposition Summary: 06/01/24 14:27 Discharge Ordered Notes: Location: Home sb4 Problem: new sb4 Symptoms: are unchanged sb4 Condition: Stable sb4 Diagnosis - Acute upper respiratory infection, unspecified sb4 Followup: sb4 - With: Emergency Department - When: As needed - Reason: Trouble breathing, Worsening of condition Discharge Instructions: - Discharge Summary Sheet sb4 - Upper Respiratory Infection, Adult, [id number] sb4 Forms: - Antibiotic Education sb4 - Patient Portal Instructions sb4 - Leadership Thank You Letter sb4 Prescriptions: - Tessalon Perles 100 mg Oral Capsule - take 1 capsule ORAL route every 8 hours As needed; 15 capsule; Refills: 0, sb4 Product Selection Permitted - Zithromax Z-Jorge 250 mg Oral Tablet - take 1 tablet ORAL route as directed for 5 days Day 1 - take two (2) tablets sb4 one time. Day 2, 3, 4 , 5 take one (1) tablet once daily.; 6 tablet; Refills: 0, Product Selection Permitted - Prednisone 20 mg Oral Tablet - take 1 tablet ORAL route every 12 hours for 5 days; 10 tablet; Refills: 0, sb4 Product Selection Permitted Addendum: 06/05/2024 07:42 I was immediately available for consultation during this patient's visit. I did not e c2 personally see the patient or discuss the patient with the AIDEN. . Signatures: Dispatcher [employer] EDMS Chirag, Cecilia, RN RN iw Brown, Jayda, PA-C PA-C sb4 Mcknight, Fareed, MD MD ec2
--- NOTE | 2024-06-01 14:28 | ER ---
Nurse's Notes [facility] Name: Donna Farris Age: 29 yrs Sex: Female : 1995 Arrival Date: 06/01/2024 Time: 12:55 Bed DX5 Private MD: Diagnosis: Acute upper respiratory infection, unspecified Presentation: 06/01 13:11 Chief complaint: Patient states: cough, chest congestion, her baby tested positive for iw flu, symptoms X 1 week. Coronavirus screen: Client presents with at least one sign or symptom that may indicate coronavirus-19. Ebola Screen: No symptoms or risks identified at this time. Initial Sepsis Screen: Does the patient meet any 2 criteria? No. Patient's initial sepsis screen is negative. Does the patient have a suspected source of infection? No. Patient's initial sepsis screen is negative. Risk Assessment: Do you want to hurt yourself or someone else? Patient reports no desire to harm self or others. Onset of symptoms was May 24, 2024. 13:11 Method Of Arrival: Ambulatory iw 13:11 Acuity: GUZMAN 4 iw Triage Assessment: 13:15 General: Appears in no apparent distress. Behavior is calm, cooperative. iw Historical: - Allergies: 13:12 Keflex; iw 13:12 SILICON; iw - PMHx: 13:12 GERD; iw - PSHx: 13:12 breast augmentation; section; deviated septum repair; iw - Immunization history:: Adult Immunizations not up to date. - Infectious Disease History:: Denies. - Social history:: Smoking status: Patient/guardian denies using tobacco, Stopped _ months ago 3. Screenin:[address] [facility] ED Fall Risk Assessment (Adult) History of falling in the last 3 months, iw including since admission No falls in past 3 months (0 pts) Confusion or Disorientation No (0 pts) Intoxicated or Sedated No (0 pts) Impaired Gait No (0 pts) Mobility Assist Device Used No (0 pt) Altered Elimination No (0 pt) Score/Fall Risk Level 0 - 2 = Low Risk Oriented to surroundings, Maintained a safe environment. Abuse screen: Denies threats or abuse. Denies injuries from another. Nutritional screening: No deficits noted. Tuberculosis screening: No symptoms or risk factors identified. Assessment: 13:15 General: Appears in no apparent distress. Behavior is calm, cooperative. General: iw Reports feeling ill for fatigue for. Pain: Complains of pain in chest. Neuro: Level of Consciousness is awake, alert, obeys commands, Oriented to person, place, time, situation, Moves all extremities. Full function. Cardiovascular: Patient's skin is warm and dry. Respiratory: Respiratory effort is even, unlabored, Respiratory pattern is regular, symmetrical. GI: Abdomen is non-distended. Derm: Skin is intact, is healthy with good turgor. Musculoskeletal: Range of motion: intact in all extremities. Vital Signs: 13:11 BP 118 / 72; Pulse 89; Resp 19; Temp 97.9; Pulse Ox 99% ; Weight 90.72 kg; Height 5 ft. iw 5 in. ; 13:11 Body Mass Index 33.28 (90.72 kg, 165.1 cm) iw ED Course: 13:00 Patient arrived in ED. al6 13:02 Jayda Jaquez PA-C is PHCP. sb4 13:02 Fareed Mcknight MD is Attending Physician. sb4 13:12 Triage completed. iw 13:12 Arm band placed on. iw 13:15 Patient has correct armband on for positive identification. Provided Education on: . iw 14:03 Chest Pa And Lat (2 Views) XRAY In Process Unspecified. EDMS 15:11 No provider procedures requiring assistance completed. Patient did not have IV access iw during this emergency room visit. 15:12 Cecilia Beard, RN is Primary Nurse. iw Administered Medications: No medications were administered Medication: 13:15 VIS not applicable for this client. iw Outcome: 14:27 Discharge ordered by . sb4 15:11 Discharged to home ambulatory, iw 15:11 Condition: good 15:11 Discharge instructions given to patient, Instructed on discharge instructions, follow up and referral plans. medication usage, Demonstrated understanding of instructions, follow-up care, Prescriptions given X 2, 15:12 Patient left the ED. iw Signatures: Dispatcher [employer] EDMS Cecilia Beard RN RN iw Jayda Jaquez PA-C PA-C sb4 Yanelis Russell al6 Corrections: (The following items were deleted from the chart) 13:12 13:11 Resp 19bpm; Pulse Ox 99%; Temp 97.9F; 90.72 kg; Height 5 ft. 5 in.; BMI: 33.2; iw iw 06/02 07:26 06/01 15:11 Discharge instructions given to patient, Instructed on discharge iw instructions, follow up and referral plans. Demonstrated understanding of instructions, follow-up care, iw
[2024-06-01 15:29] VITALS: BP 118/72; TEMP 97.9; O2SAT 99
== END 2024-06-01 15:12 | disposition home or self-care (01) ==
LOC: ER 12:55
DX: J06.9 Acute upper respiratory infection, unspecified (principal); Z87.891 Personal history of nicotine dependence; Z88.1 Allergy status to other antibiotic agents
CPT/HCPCS: 71046; 99283